=== PATIENT | female | born 1950 | race Caucasian/White ===

== ENCOUNTER → 2016-10-06 | Outpatient (CLI) | payer OTHER ==
[~2016-10-06] MED LIST: CLX/20 PO; GLUCTAB32 PO; HYDR-5688 PO; IBUP-1450 PO; LPT40 PO; OMEG12006 PO; PANT40TA PO; SPIR50TA2 PO; VERA120T15 PO; ZNTT/150 PO; ZOLP5TAB PO
--- NOTE | 2016-10-06 12:36 | MAMMOGRAPHY REPORT ---
UNILATERAL LEFT DIGITAL DIAGNOSTIC MAMMOGRAM TOMOSYNTHESIS WITH CAD: 10/06/2016 CLINICAL HISTORY: 66-year-old woman with biopsy-proven left breast DCIS status post lumpectomy. No radiation therapy. No residual DCIS was identified at lumpectomy, only scattered microcalcification associated with fibrocystic change. TECHNIQUE: Left CC and MLO 2-D digital and tomosynthesis images, spot magnification left CC and ML v iews were obtained. Current study was also evaluated with a Computer Aided Detection (CAD) system. COMPARISON: Comparison is made to exams dated: 04/08/2016 mammogram, 04/08/2016 stereotactic biopsy, 03/25/2016 mammogram, 04/01/2016 mammogram, 02/19/2015 mammogram, and 01/10/2011 mammogram - [facility]. BREAST COMPOSITION: There are scattered areas of fibroglandular density in the left breast. FINDINGS: There is expected architectural distortion, a few oil cysts and surgical clips in the 2:0 0 to 3:00 middle to posterior left breast, at the site of prior lumpectomy. There are loosely group ed and scattered punctate microcalcifications surrounding the surgical site, that have a benign appe arance and most of these calcifications were present prior to the patient's biopsy-proven DCIS. Add itionally, they differ in morphology, as the patient's biopsy proven DCIS was associated with pleomo rphic microcalcifications. No new suspicious mass or architectural distortion is identified in the left breast. A short interval follow-up left mammogram including repeat spot magnification views is recommended to ensure stability in 6 months. IMPRESSION: ACR-BI-RADS CATEGORY 3: PROBABLY BENIGN There are expected post-lumpectomy changes in the left upper outer quadrant. A follow-up left mammo gram including spot magnification views is recommended to ensure stability near the surgical site in the upper outer quadrant of the left breast, including scattered and grouped punctate benign-appear ing microcalcifications. Annual right mammography will also be due at that time. These results and recommendations were discussed with the patient at the time of the exam. Approximately 10% of breast cancers are not detected with mammography. A negative mammographic repor t should not delay biopsy if a clinically suggestive mass is present. Flory Mcmillan M.D. ay/:10/06/2016 09:17:36 Spa Receptionist: Aleksandra ROBERTSON(R)(M), [facility] letter sent: Follow Up Recommended 3 BI-RADS Code: ACR-BI-RADS Category 3: Probably Benign
== END | disposition home or self-care (01) ==
LOC: C.MAMM 08:35
PROVIDERS: ATTEND Obstetrics & Gynecology
DX: R92.0 Mammographic microcalcification found on diagnostic imaging of breast (principal); Z98.890 Other specified postprocedural states

== ENCOUNTER → 2016-10-14 | Outpatient (CLI) | payer OTHER ==
[2016-10-14 12:22] LABS: HEMATOCRIT 37.8 % (37-47); MEAN CELL VOLUME 82.2 fL (80-100); MEAN CORPUSCULAR HEMOGLOBIN 25.7 pg (25-34); MEAN CORPUSCULAR HGB CONC 31.2 g/dl (32-36); MEAN PLATELET VOLUME 10.2 fL (7.4-10.4); PLATELET COUNT 344 K/uL (130-400); WHITE BLOOD COUNT 9.15 K/uL (4.8-10.8)
[2016-10-14 12:26] LABS: ALT/SGPT 25 U/L (12-78); AST/SGOT 12 U/L (15-37); BLOOD UREA NITROGEN 23 mg/dl (7-18); BUN/CREATININE RATIO 20.7 (10-20); CALCIUM 8.7 mg/dl (8.5-10.1); CARBON DIOXIDE 28 mmol/L (21-32); CHLORIDE 105 mmol/L (98-107); GLUCOSE 97 mg/dl (70-99); POTASSIUM 4.3 mmol/L (3.5-5.1); SODIUM 141 mmol/L (136-145)
[2016-10-14 12:38] LABS: ALB/GLOB RATIO 1.1 (0.9-2); ALKALINE PHOSPHATASE 76 U/L (45-117); CHOLESTEROL 167 mg/dl (0-200); CHOLESTEROL/HDL RATIO 2.9; HDL CHOLESTEROL 57 mg/dl; LDL CHOLESTEROL CALCULATED 86 mg/dl; TRIGLYCERIDES 118 mg/dl (0-150); VERY LOW DENSITY LIPOPROT CALC 24 mg/dl
[2016-10-14 12:51] LABS: ESTIMATED AVERAGE GLUCOSE 120 mg/dl; HA1C FLAG Normal (Normal)
== END | disposition home or self-care (01) ==
LOC: C.LABBFT 09:46
PROVIDERS: ATTEND Internal Medicine
DX: E78.00 Pure hypercholesterolemia, unspecified (principal); I10 Essential (primary) hypertension; D64.9 Anemia, unspecified; E88.81 Metabolic syndrome and other insulin resistance

== ENCOUNTER → 2016-10-27 | Outpatient (CLI) | payer OTHER ==
--- NOTE | 2016-10-27 12:18 | DIAGNOSTIC IMAGING REPORT ---
THYROID ULTRASOUND HISTORY: Thyroid nodule NODULE COMPARISON: None. FINDINGS: Right lobe: Maximum dimension 4.4 cm. Several sub-6 mm hypodense nodules. Left lobe: Maximum dimension 4.7 cm. Large nodule measuring inferior aspect left thyroid measuring 4 x 2.5 x 2.0 cm. Fine-needle aspiration is suggested. Several additional subcentimeter nodular densities are also noted. Isthmus: No nodules. IMPRESSION: 1. Baseline multinodular thyroid bilaterally. 2. Dominant mass left mid and lower aspect left thyroid measuring 4.0 x 2.5 cm. Fine-needle aspiration is suggested. Electronically signed by: Chuy Palomo M.D. 10/27/2016 12:17 PM Dictated Date/Time: 10/27/2016 12:14 PM
== END | disposition home or self-care (01) ==
LOC: C.ULTR 11:21
PROVIDERS: ATTEND Surgery
DX: E04.2 Nontoxic multinodular goiter (principal)

== ENCOUNTER → 2016-11-07 | Outpatient (CLI) | payer OTHER ==
--- NOTE | 2016-11-07 11:18 | Discharge Instructions ---
Discharge Instructions Procedure Procedure Date: Nov 07, 2016. Reason for visit: L Thyroid Nodule/Us Was Done 10/27/16. Discharge Discharge Date: Nov 07, 2016. Discharge Diagnosis: s/p left lobe thyroid nodule FNA Instructions Activity Recommendations: No limitations Return to School/Work: no limitations Recommended Home Diet: No Limitations Provider Instructions: ACTIVITY RECOMMENDATIONS: * Rest today. * Resume regular activity in one day. MEDICATIONS: * May take Tylenol or Ibuprofen as needed for pain. DIET: * Resume previous diet. SPECIAL CARE INSTRUCTIONS: Call your doctor if: * Temperature above 101 degrees F. * Pain not relieved by pain medicine ordered. * Increased drainage or redness from incision. * Notify your doctor with any questions or concerns. Call your doctor or go to the nearest Emergency Department if you experience: * Increased chest pain or shortness of breath. FOLLOW UP VISIT: Follow-up with Referring Physician as scheduled. Allergies Coded Allergies: No Known Allergies (Verified , 05/05/16) Dayami Gil Recommendations: Call your doctor if: * Temperature above 101 degrees * Pain not relieved by pain medicine ordered * There is increased drainage or redness from any incision * You have any unanswered questions or concerns. Your Doctors Instructions noted above were prepared by provider Alonso Keenan. Patient Signature Section: Patient Instructions Signature Page Shakila Santoro Patient (or Guardian) Signature/Date: I have read and understand the instructions given to me by my caregivers. Caregiver/RN/Doctor Signature/Date: The above-named patient and/or guardian has received patient instructions on this date. + Original Patient Signature Page (only) stays with chart. Please make copy for patient.
--- NOTE | 2016-11-07 11:39 | DIAGNOSTIC IMAGING REPORT ---
ULTRASOUND GUIDED FINE NEEDLE ASPIRATION OF LEFT LOBE THYROID NODULE CLINICAL HISTORY: Thyroid nodule. COMPARISON STUDY: Thyroid ultrasound October 27, 2016. PROCEDURE: The procedure, risks and benefits were discussed the patient and informed written consent was obtained. The procedure was performed by Dr. Keenan following a timeout. Skin of the left neck was prepped and draped in sterile fashion and local anesthesia was achieved with 1% lidocaine. Under direct ultrasound guidance, 4 25-gauge fine needle aspirations of the 4 cm peripherally calcified left lobe thyroid nodule were performed. The samples were deemed preliminarily adequate by pathology. The patient tolerated the procedure well and no immediate complications were evident. IMPRESSION: Ultrasound guided fine aspiration of 4 cm dominant left lobe thyroid nodule. Electronically signed by: Alonso Keenan M.D. 11/07/2016 11:38 AM Dictated Date/Time: 11/07/2016 11:34 AM
== END | disposition home or self-care (01) ==
LOC: C.ULTR 10:18
PROVIDERS: ATTEND Surgery
DX: E04.1 Nontoxic single thyroid nodule (principal)

== ENCOUNTER → 2017-02-02 | Outpatient (CLI) | payer OTHER ==
[~2017-02-02] MED LIST changes: +ASPI81TA28 PO; +CLOP1TAB15 PO; +CLR10 PO; +MISC1CAP PO; +OMEG10007 PO; +VERA120T2 PO
--- NOTE | 2017-02-02 10:45 | DIAGNOSTIC IMAGING REPORT ---
Ultrasound-guided thyroid biopsy GUIDANCE NEEDLE PLACEMENT CLINICAL HISTORY: LEFT THYROID NODULE thyroid nodule follow-up TECHNIQUE: Ultrasound guided thyroid aspiration COMPARISON STUDY: 11/07/2016 FINDINGS: There was an initial description of the procedure and informed consent, 2 passes with a 25-gauge needle were made to the dominant nodule left thyroid. Thyroid cells were confirmed . There were no complications IMPRESSION: Follow-up thyroid biopsy . No complications. Electronically signed by: Chuy Palomo M.D. 02/02/2017 10:43 AM Dictated Date/Time: 02/02/2017 10:40 AM
== END | disposition home or self-care (01) ==
LOC: C.ULTR 09:36
PROVIDERS: ATTEND Surgery
DX: E04.1 Nontoxic single thyroid nodule (principal)

== ENCOUNTER → 2017-03-30 | Outpatient (CLI) | payer OTHER ==
[~2017-03-30] MED LIST changes: -ASPI81TA28 PO; -CLOP1TAB15 PO; -CLR10 PO; -MISC1CAP PO; -OMEG10007 PO; -VERA120T2 PO
[2017-03-30 12:26] LABS: BASO % 1.1 %; BASO ABS # 0.07 K/uL (0-0.2); COMPLETE YES; EOS % 5.1 %; HEMATOCRIT 39.8 % (37-47); IG% 0.2 %; LYMPH % 34.8 %; MEAN CELL VOLUME 85.4 fL (80-100); MEAN CORPUSCULAR HEMOGLOBIN 26.6 pg (25-34); MEAN CORPUSCULAR HGB CONC 31.2 g/dl (32-36); MEAN PLATELET VOLUME 10.1 fL (7.4-10.4); MONO % 10.3 %; NEUT % 48.5 %; PLATELET COUNT 363 K/uL (130-400); RED BLOOD COUNT 4.66 M/uL (4.2-5.4); WHITE BLOOD COUNT 6.33 K/uL (4.8-10.8)
[2017-03-30 12:45] LABS: ALT/SGPT 23 U/L (12-78); AST/SGOT 14 U/L (15-37); BLOOD UREA NITROGEN 18 mg/dl (7-18); BUN/CREATININE RATIO 16.8 (10-20); CARBON DIOXIDE 28 mmol/L (21-32); CHLORIDE 105 mmol/L (98-107); CHOLESTEROL 168 mg/dl (0-200); GLUCOSE 94 mg/dl (70-99); POTASSIUM 4.3 mmol/L (3.5-5.1); SODIUM 139 mmol/L (136-145)
[2017-03-30 12:47] LABS: ALKALINE PHOSPHATASE 83 U/L (45-117); CHOLESTEROL/HDL RATIO 3.2; HDL CHOLESTEROL 53 mg/dl; LDL CHOLESTEROL CALCULATED 81 mg/dl; TRIGLYCERIDES 169 mg/dl (0-150); VERY LOW DENSITY LIPOPROT CALC 34 mg/dl
[2017-03-30 12:50] LABS: ESTIMATED AVERAGE GLUCOSE 123 mg/dl; HA1C FLAG Normal (Normal)
== END | disposition home or self-care (01) ==
LOC: C.LABBFT 08:50
PROVIDERS: ATTEND Internal Medicine
DX: Z11.59 Encounter for screening for other viral diseases (principal); E88.81 Metabolic syndrome and other insulin resistance; D64.9 Anemia, unspecified

== ENCOUNTER → 2017-04-06 | Outpatient (CLI) | payer OTHER ==
--- NOTE | 2017-04-06 15:12 | MAMMOGRAPHY REPORT ---
BILATERAL DIGITAL DIAGNOSTIC MAMMOGRAM TOMOSYNTHESIS WITH CAD AND TARGETED RIGHT ULTRASOUND: 7 CLINICAL HISTORY: Close follow-up after breast conservation treatment for left breast DCIS. Also nahum e of annual bilateral screening exam. TECHNIQUE: Bilateral CC and MLO 2-D digital and tomosynthesis images were obtained. Spot magnificati on left CC and ML views were also obtained. Current study was also evaluated with a Computer Aided D etection (CAD) system. COMPARISON: Comparison is made to exams dated: 10/06/2016 mammogram, 04/23/2016 stereotactic biopsy, 04/23/2016 mammogram, 04/08/2016 mammogram, 04/08/2016 stereotactic biopsy, and 04/01/2016 mammogram - [facility]. BREAST COMPOSITION: There are scattered areas of fibroglandular density in both breasts. FINDINGS: The parenchymal pattern is similar to prior exams. There is stable nodularity in the later al left breast. Expected architectural distortion in the 2:00 to 3:00 posterior left breast, at the site of prior lumpectomy. Surgical clips are in place. On the spot magnification views, there are a few scattered and loose groupings containing approximately 2 microcalcifications lateral to the surg ical site that are most likely benign. The calcifications appear less prominent compared to the 09/21 spot magnification views. However, another six-month follow-up diagnostic mammogram including spot magnification views is recommended to ensure stability after treatment for left breast DCIS and recheck these scattered and loosely grouped calcifications. No new suspicious mass, unexpected area of architectural distortion or other microcalcifications are seen in the left breast. There are stable post biopsy changes in the 9:00 anterior right breast, with metallic biopsy marker i n place. There is increasingly prominent nodularity in the lateral right breast, including an oval c ircumscribed 12 x 6 mm mass in the upper outer middle one third of the breast, and a lobulated circum scribed 4 x 7 mm mass in the upper outer anterior right breast. Further evaluation with ultrasound w as performed. No suspicious spiculated or irregular mass, focal area of architectural distortion or suspicious calcifications are seen in the right breast. Targeted ultrasound was performed in the lateral right breast. In the 9:00 periareolar axis, there i s an anechoic benign simple cyst measuring 4.5 x 4.2 x 6.6 mm. This correlates well with the circums cribed mass in the anterior aspect of the breast. Another oval parallel anechoic cyst is identified in the 9:00 right breast, 6 cm from the nipple, which may correlate with the second circumscribed ova l mass seen mammographically. These findings most likely represent benign fibrocystic changes. Cole yu, a short interval follow-up diagnostic right mammogram including tomosynthesis images and possibl e repeat ultrasound is recommended to ensure stability of the nodularity in 6 months. IMPRESSION: ACR-BI-RADS CATEGORY 3: PROBABLY BENIGN, TARGETED ULTRASOUND ACR-BI-RADS CATEGORY 3: PRO BABLY BENIGN 1. Expected post treatment changes in the left breast with a few scattered and loosely grouped benig n-appearing microcalcifications at the surgical site. Another six-month follow-up diagnostic left ma mmogram including spot magnification views is recommended to ensure longer stability after treatment. 2. Increasing nodularity in the lateral right breast thought to correlate with scattered cysts and f ibrocystic changes on ultrasound. However, a short interval follow-up diagnostic right mammogram inc luding tomosynthesis images and possible repeat ultrasound is recommended to ensure stability in 6 mo nths. These results and recommendations were discussed with the patient at the time of the exam. Approximately 10% of breast cancers are not detected with mammography. A negative mammographic report should not delay biopsy if a clinically suggestive mass is present. Flory Mcmillan M.D. ay/:04/06/2017 11:29:57 Senior Partner: Claudia Borges, [facility] letter sent: Follow Up Recommended 3 BI-RADS Code: ACR-BI-RADS Category 3: Probably Benign Ultrasound BI-RADS: ACR-BI-RADS Category 3: Pr obably Benign
== END | disposition home or self-care (01) ==
LOC: C.MAMM 09:09
PROVIDERS: ATTEND Surgery
DX: C50.912 Malignant neoplasm of unspecified site of left female breast (principal); R92.0 Mammographic microcalcification found on diagnostic imaging of breast

== ENCOUNTER → 2017-04-27 | Outpatient (CLI) | payer OTHER ==
--- NOTE | 2017-04-27 10:52 | DIAGNOSTIC IMAGING REPORT ---
ULTRASOUND-GUIDED FINE-NEEDLE ASPIRATION BIOPSY OF A LEFT LOBE THYROID NODULE CLINICAL HISTORY: LEFT THYROID NODULE COMPARISON STUDY: 02/02/2017 FINDINGS: The risks of the procedure were explained the patient and informed consent was obtained. Patient was prepped and draped in sterile fashion. The skin was anesthetized 1% lidocaine. Under ultrasound guidance, 2 passes with 25-gauge needle were performed into the dominant left lobe thyroid nodule. Initial pathologic review indicates satisfactory material for diagnosis. IMPRESSION: Successful ultrasound-guided fine-needle aspiration biopsy of a lower pole left lobe thyroid nodule. Electronically signed by: Kenneth Tomlinson M.D. 04/27/2017 10:51 AM Dictated Date/Time: 04/27/2017 10:49 AM
== END | disposition home or self-care (01) ==
LOC: C.ULTR 09:38
PROVIDERS: ATTEND Surgery
DX: E04.1 Nontoxic single thyroid nodule (principal); R89.6 Abnormal cytological findings in specimens from other organs, systems and tissues

== ENCOUNTER 2017-09-02 05:21 | Inpatient (IN) | payer OTHER ==
[2017-08-03 11:08] VITALS: BMI 38.0
--- NOTE | 2017-08-03 11:46 | PAT Medication Instructions ---
Service Date Aug 03, 2017. Current Home Medication List Aspirin (Aspirin Ec), 81 MG PO QAM Atorvastatin (Atorvastatin Calcium), 40 MG PO HS Citalopram (Citalopram Hydrobromide), 20 MG PO QAM Clopidogrel (Plavix), 75 MG PO QAM Fish Oil (Marion-3), 1 CAP PO QAM Gweocqgsorl-Qmhymycoaae-Ab Cho (Glucosamine Chondroitin &), 1 TAB PO QAM Loratadine (Claritin), 10 MG PO QAM Misc Natural Products ([employer]), 1 TAB PO QPM Pantoprazole (Protonix), 40 MG PO QAM Ranitidine (Zantac), 1 TAB PO BID Spironolactone (Aldactone), 50 MG PO QAM Verapamil Sust Rel (Calan Sr Ext Rel), 120 MG PO BID Zolpidem Tartrate (Ambien), 1 TAB PO HS Medication Instructions For Your Scheduled Surgery - Check with surgeon/prescribing physician for instructions: Aspirin (Aspirin Ec), 81 MG PO QAM Clopidogrel (Plavix), 75 MG PO QAM - Hold the following medications 2 weeks prior to surgery: Misc Natural Products ([employer]), 1 TAB PO QPM Fish Oil (Marion-3), 1 CAP PO QAM Tgrzoktrbfz-Owndwgfbprb-Qv Cho (Glucosamine Chondroitin &), 1 TAB PO QAM - Hold the following medications the morning of surgery: Spironolactone (Aldactone), 50 MG PO QAM Loratadine (Claritin), 10 MG PO QAM - Take the following medications the morning of surgery with a sip of water: Ranitidine (Zantac), 1 TAB PO BID Pantoprazole (Protonix), 40 MG PO QAM Citalopram (Citalopram Hydrobromide), 20 MG PO QAM Verapamil Sust Rel (Calan Sr Ext Rel), 120 MG PO BID - Take the following medications as scheduled the night before surgery: Zolpidem Tartrate (Ambien), 1 TAB PO HS Ranitidine (Zantac), 1 TAB PO BID Atorvastatin (Atorvastatin Calcium), 40 MG PO HS Verapamil Sust Rel (Calan Sr Ext Rel), 120 MG PO BID If you have any questions please call us at [phone] or [phone] or [phone]
[2017-08-03 12:30] LABS: BASO % 0.7 %; BASO ABS # 0.05 K/uL (0-0.2); COMPLETE YES; HEMATOCRIT 39.6 % (37-47); IG% 0.1 %; LYMPH % 26.7 %; MEAN CELL VOLUME 86.5 fL (80-100); MEAN CORPUSCULAR HEMOGLOBIN 28.2 pg (25-34); MEAN CORPUSCULAR HGB CONC 32.6 g/dl (32-36); MEAN PLATELET VOLUME 10.2 fL (7.4-10.4); MONO % 8.8 %; NEUT % 59.7 %; PLATELET COUNT 331 K/uL (130-400); RED BLOOD COUNT 4.58 M/uL (4.2-5.4); WHITE BLOOD COUNT 6.74 K/uL (4.8-10.8)
[2017-08-03 13:07] LABS: BUN/CREATININE RATIO 13.8 (10-20); CALCIUM 9.1 mg/dl (8.5-10.1); CREATININE 1.06 mg/dl (0.60-1.20); POTASSIUM 4.5 mmol/L (3.5-5.1)
[2017-09-02] VITALS (10 sets, daily range): BP systolic 103–138; BP diastolic 66–85; PULSE 65–82; TEMP 36.5–36.9; O2SAT 92–95; Ht 162.6 cm; Wt 101.3 kg
[~2017-09-02] VITALS: Ht 162.6 cm; Wt 101.3 kg
[~2017-09-02 05:21] MED LIST changes: +ASPI81TA28 PO; +CLOP1TAB15 PO; +CLR10 PO; -HYDR-5688 PO; -IBUP-1450 PO; +MISC1CAP PO; +OMEG10007 PO; -OMEG12006 PO; -VERA120T15 PO; +VERA120T2 PO
[2017-09-02] MEDS ORDERED: AMOX500T PO (05:44)
[2017-09-02] MEDS ORDERED: CEFAZOLIN 2000MG IV PUSH 10 ML IV SCH (06:00)
[2017-09-02] MEDS ORDERED: LACTATED RINGER'S 1000ML 1,000 ML IV SCH ×3 (06:00→12:45)
--- NOTE | 2017-09-02 06:34 | History and Physical ---
History & Physical Date Sep 02, 2017. Chief Complaint LEFT THYROID NODULE History of Present Illness The patient is a 67 year old female with complaints of 4X2.5CM L THYROID NODULE WITH FNA SHOWING FOLLICULAR NEOPLASM. PT REQUESTS TOTAL THYROIDECTOMY. Past Medical/Surgical History Medical Problems: (1) Hypercholesteremia (2) TIA (transient ischemic attack) BREAST DCIS, ANXIETY, GERD, DYSLIPIDEMIA, HTN, OBESITY, PVD Surgical Problems: (1) H/O lumpectomy S/P SAURAV/BSO Allergies Coded Allergies: No Known Allergies (Verified , 09/02/17) Home Medications Scheduled Amoxicillin & Pot Clavulanate (Augmentin 500MG), 1 TAB PO BID Aspirin (Aspirin Ec), 81 MG PO QAM Atorvastatin (Atorvastatin Calcium), 40 MG PO HS Citalopram (Citalopram Hydrobromide), 20 MG PO QAM Clopidogrel (Plavix), 75 MG PO QAM Fish Oil ([place]-3), 1 CAP PO QAM Jyuoerlnvdk-Fbxmmiggibq-Nv Cho (Glucosamine Chondroitin &), 1 TAB PO QAM Loratadine (Claritin), 10 MG PO QAM Misc Natural Products ([employer]), 1 TAB PO QPM Pantoprazole (Protonix), 40 MG PO QAM Ranitidine (Zantac), 1 TAB PO BID Spironolactone (Aldactone), 50 MG PO QAM Verapamil Sust Rel (Calan Sr Ext Rel), 120 MG PO BID Zolpidem Tartrate (Ambien), 1 TAB PO HS Physical Examination Skin: warm/dry, no rash Eyes: normal inspection, EOMI, sclerae normal ENT: + pertinent finding (4CM SOFT L THYROID NODULE) Head: normocephalic, atraumatic Neck: supple, no adenopathy, trachea midline Respiratory/Chest: lungs clear, normal breath sounds, no respiratory distress Cardiovascular: regular rate, rhythm, no edema, no murmur Neurologic/Psych: no motor/sensory deficits, alert, normal reflexes, oriented x 3 Diagnosis LEFT THYROID NODULE Plan of Treatment TOTAL THYROIDECTOMY
[2017-09-02] MEDS ORDERED: FENTANYL CITRATE INJ 50 MCG/1 ML 2 ML VIAL IV PRN (06:45)
[2017-09-02] MEDS ORDERED: HYDROmorphone INJ 1 MG/ML SYR IV PRN (06:45)
[2017-09-02] MEDS ORDERED: ATROPINE SULFATE 0.1 MG/ML 5ML SYR IV PRN (06:45)
[2017-09-02] MEDS ORDERED: PROMETHAZINE HCL INJ 12.5 MG in SODIUM CHLORIDE 0.9% 50ML 50 ML IV PRN (06:45)
[2017-09-02] MEDS ORDERED: ONDANSETRON INJ 2 MG/ML 2 ML VIAL IV PRN ×2 (06:45→09:45)
[2017-09-02] MEDS ORDERED: EpHEDrine SULFATE INJ 50 MG/ML AMP IV PRN (06:45)
[2017-09-02] MEDS ORDERED: ONDANSETRON INJ 2 MG/ML 2 ML VIAL ONE ×2 (07:02→08:13)
[2017-09-02] MEDS ORDERED: NEOSTIGMINE METHYLSULFATE 5 MG/5 ML SYR ONE (07:02)
[2017-09-02] MEDS ORDERED: DEXAMETHASONE SOD INJ 4 MG/ML VIAL ONE (07:02)
[2017-09-02] MEDS ORDERED: GLYCOPYRROLATE INJ 0.2 MG/ML VIAL ONE (07:02)
[2017-09-02] MEDS ORDERED: FENTANYL CITRATE INJ 50 MCG/1 ML 2 ML VIAL ONE (07:02)
[2017-09-02] MEDS ORDERED: MIDAZOLAM HCL 1 MG/ML 2ML VIAL ONE (07:02)
[2017-09-02] MEDS ORDERED: PROPOFOL IV EMULSION 10 MG/ML 20 ML VIAL IV ONE (07:02)
[2017-09-02] MEDS ORDERED: LIDOCAINE HCL 2% 2 ML VIAL (20MG/ML) ONE (07:02)
[2017-09-02] MEDS ORDERED: ACETAMINOPHEN 1000 MG/100 ML IV IV ONE (07:07)
[2017-09-02] MEDS ORDERED: REMIFENTANIL 1 MG VIAL ONE (07:07)
[2017-09-02] MEDS ORDERED: THROMBIN 5000 UNITS KIT ONE (07:08)
[2017-09-02] MEDS ORDERED: BACITRACIN OINT 15 GM TUBE ONE (07:08)
[2017-09-02] MEDS ORDERED: LIDOCAINE/EPINEPHRINE 1% 20 ML VIAL ONE (07:08)
[2017-09-02] MEDS ORDERED: SODIUM CHLORIDE 0.9% INJ 10 ML VIAL ONE (08:14)
[2017-09-02] MEDS ORDERED: PHENYLEPHRINE HCL INJ 10 MG/ML VIAL ONE (08:14)
[2017-09-02] MEDS ORDERED: EpHEDrine SULFATE 50MG/5ML SYR ONE (08:14)
[2017-09-02] MEDS ORDERED: SURGICEL ABSORB HEMOSTAT 2IN X 14IN TOP ONE (09:31)
--- NOTE | 2017-09-02 09:34 | [facility] Operative Report ---
Operative Report Operative Date Sep 02, 2017. Pre-Operative Diagnosis Left Thyroid Nodule Post-Operative Diagnosis Left Thyroid Nodule Procedure(s) Performed Total Thyroidectomy Surgeon Dr. Meir Dejesus Industrial Conveyor Belt Repairer Surgeon(s) Sindy Dudley PA-C Estimated Blood Loss 25ml Findings 1. LARGE ~4CM LEFT THYROID NODULE Specimens A. Right Thyroid Lobe-Single stitch araya Isthmus and Double stitch araya Superior Pole B. Left Thyroid Lobe-Single stitch araya Isthmus and Double stitch araya Superior Pole I attest to the content of the Intraoperative Record and any orders documented therein. Any exceptions are noted below.
--- NOTE | 2017-09-02 09:41 | Discharge Instructions ---
Discharge Instructions Date of Service Sep 02, 2017. Admission Reason for Admission: Multinodular Goiter Discharge Discharge Diagnosis / Problem: SAME Discharge Goals Goal(s): Therapeutic intervention Activity Recommendations Activity Limitations: as noted below 1. LIGHT ACTIVITY FOR 2 WEEKS 2. NO DRIVING WHILE ON NORCO 3. KEEP ICE ON INCISION MUCH POSSIBLE FOR 1 WEEK 4. KEEP INCISION DRY FOR 1 WEEK . Current Hospital Diet Patient's current hospital diet: Discharge Diet Recommended Diet: Regular Diet Procedures Procedures Performed: Total Thyroidectomy Pending Studies Studies pending at discharge: no Medical Emergencies . Who to Call and When: Medical Emergencies: If at any time you feel your situation is an emergency, please call 911 immediately. . Non-Emergent Contact Non-Emergency issues call your: Surgeon . . "Provider Documentation" section prepared by Meir Dejesus. . VTE Core Measure Inpt VTE Proph given/why not?: SCD's
[2017-09-02] MEDS ORDERED: HYDROCODONE/ACETAMOPHEN 5/325MG TAB PO PRN (09:45)
--- NOTE | 2017-09-02 10:42 | OPERATIVE REPORT ---
DATE OF OPERATION: 09/02/2017 PREOPERATIVE DIAGNOSIS: Large left thyroid nodule with fine needle aspiration biopsy, showing follicular neoplasm. POSTOPERATIVE DIAGNOSIS: Same. PROCEDURE: Total thyroidectomy. SURGEON: Dr. Meir Dejesus. COMPUTER SYSTEMS SUPPORT SPECIALIST: Sindy Dudley PA-C ESTIMATED BLOOD LOSS: 25 mL. FINDINGS: Large left thyroid nodule, measuring approximately 4 cm in greatest dimension. SPECIMENS: Right and left thyroid lobe sent separately for permanent pathological specimen. COMPLICATIONS: None. DRAINS: None. INDICATIONS FOR THE PROCEDURE: The patient is a pleasant 67-year-old female with a history of a 4-cm left thyroid nodule, for which she underwent ultrasound guided fine needle aspiration biopsy, which showed findings suspicious of follicular neoplasm. It was discussed with her that this may represent a benign follicular adenoma, but follicular carcinoma cannot be ruled out on fine needle aspiration biopsy. She has a history of breast cancer and also a strong family history of malignancy and she desires total thyroidectomy for diagnostic and therapeutic purposes. She presents for the above-mentioned procedure on an inpatient elective basis. DESCRIPTION OF PROCEDURE: After informed consent had been obtained from the patient, the patient was wheeled to the operating room and placed on the operating table in the supine position. Monitors were placed. After induction of general endotracheal anesthesia with a size 7 nerve integrity monitor endotracheal tube, the patient's head and neck were gently extended and a marking pen was used to outline the planned 6-cm incision in a natural skin crease 2 fingerbreadths above the level of clavicles. 3 mL of 1% lidocaine with 1:100,000 epinephrine was used to inject the skin and subcutaneous tissues overlying the planned incision site. The skin in the neck and chest were then prepped and draped in the usual sterile fashion. A #15 scalpel was then used to make the incision through the skin, subcutaneous tissue, and platysma. Subplatysmal flaps were raised superiorly to the level of the thyroid notch and inferiorly to the level of clavicles. The median raphe of the strap muscle was divided using Bovie electrocautery. The strap muscles were retracted laterally and the right thyroid lobe was first addressed. The middle thyroid vein was divided adjacent to the thyroid capsule using a Harmonic scalpel. Likewise, the superior and inferior thyroid vascular pedicles were divided adjacent to the thyroid capsule using a Harmonic scalpel. Dissection was carried lateral to medial with care to identify and preserve the right recurrent laryngeal nerve as well as superior and inferior parathyroid candidates. It was difficult to identify the parathyroid glands due to the patient's surrounding adipose tissue, but 2 candidates were found. The thyroid gland was at the isthmus using a Harmonic scalpel. Orienting sutures were placed in the right thyroid lobectomy specimen, which was sent off for permanent pathologic assessment. The right thyroid lobe appeared normal in size and there were no gross nodules seen. The left side was then addressed in a similar fashion with intraoperative findings of a large 4-cm semi-firm nodule involving the majority of the left thyroid lobe. Orienting sutures were placed on the left thyroid lobectomy specimen, which was sent off for permanent pathological assessment. The wound was then copiously irrigated and suctioned. Bipolar cautery was used to achieve adequate hemostasis. Hemostasis was confirmed with a Valsalva maneuver. Small pieces of Surgicel followed by topical spray thrombin were then placed into the bilateral tracheoesophageal grooves for added hemostatic effect. The strap muscles were then reapproximated in the midline using a simple running interlocked 3-0 Vicryl suture. The platysma was then closed with several deep 4-0 Monocryl sutures. The skin was then closed with a simple running subcuticular 5-0 Monocryl suture. The incision was cleansed and dried. Dermabond was applied to the incision. This marked the end of the case. The patient tolerated the procedure well. There were no apparent complications. The patient was extubated and transferred to recovery room in stable condition. Of note, Sindy Dudley assisted with the entire case and performed the skin closure involving a 4-0 Monocryl and 5-0 Monocryl sutures. I attest to the content of the Intraoperative Record and any orders documented therein. Any exception s are noted below.
--- NOTE | 2017-09-02 12:53 | Anesthesiology Progress Note ---
Anesthesia Post Op Note Date & Time Sep 02, 2017 at 12:53 Vital Signs Pain Intensity: 0.0 Vital Signs Past 12 Hours Date Time Temp Pulse Resp B/P (MAP) Pulse Ox O2 Delivery O2 Flow Rate FiO2 09/02/17 12:43 78 16 134/85 (101) 95 Room Air 09/02/17 11:50 36.5 80 18 133/82 09/02/17 11:20 94 Nasal Cannula 2.0 09/02/17 11:20 36.5 81 16 135/80 09/02/17 11:20 94 Room Air 2.0 09/02/17 11:05 81 15 147/75 94 Nasal Cannula 2 09/02/17 10:50 36.3 83 14 157/81 94 Nasal Cannula 2 09/02/17 10:40 85 15 149/90 97 Oxymask 10 09/02/17 10:30 84 15 149/82 99 Oxymask 10 09/02/17 10:20 36.2 88 15 152/77 98 Oxymask 10 09/02/17 05:47 36.9 65 18 132/67 (88) 95 Room Air Notes Mental Status: alert / awake / arousable, participated in evaluation Pt Amnestic to Procedure: Yes Nausea / Vomiting: adequately controlled Pain: adequately controlled Airway Patency, RR, SpO2: stable & adequate BP & HR: stable & adequate Hydration State: stable & adequate Anesthetic Complications: no major complications apparent
[2017-09-02] MEDS ORDERED: INFLUENZA VIRUS QUAD VACCINE 0.5 ML SYR IM. ONE (13:30)
[2017-09-02] MEDS ORDERED: INFLUENZA ADMINISTRATION CHARGE ONE (13:30)
[2017-09-02] MEDS: ACETAMINOPHEN 325 MG TAB PO PRN ×2 (15:28→22:24)
[2017-09-02 15:36] LABS: CALCIUM 8.6 mg/dl (8.5-10.1); MAGNESIUM 2.1 mg/dl (1.8-2.4); PHOSPHORUS 2.7 mg/dl (2.5-4.9)
[2017-09-02] MEDS ORDERED: NURSING VERBAL MED ORDER ONE (19:30)
[2017-09-02] MEDS: RANITIDINE HCL 150 MG TAB PO SCH (20:48)
[2017-09-02] MEDS: VERAPAMIL HCL 120 MG TABCR PO SCH (20:48)
[2017-09-02] MEDS ORDERED: ZOLPIDEM TARTRATE 5 MG TAB PO SCH (21:00)
[2017-09-02] MEDS ORDERED: ATORVASTATIN 40 MG TAB PO SCH (21:00)
[2017-09-02 21:39] LABS: CALCIUM 8.8 mg/dl (8.5-10.1); MAGNESIUM 2.2 mg/dl (1.8-2.4); PHOSPHORUS 1.8 mg/dl (2.5-4.9)
[2017-09-03 02:20] VITALS: BP 113/72; PULSE 71; TEMP 36.6; O2SAT 93
[2017-09-03] MEDS: ACETAMINOPHEN 325 MG TAB PO PRN ×2 (04:01→08:37)
[2017-09-03 04:12] LABS: MAGNESIUM 2.1 mg/dl (1.8-2.4)
[2017-09-03 04:14] LABS: PHOSPHORUS 3.2 mg/dl (2.5-4.9)
[2017-09-03 04:15] LABS: CALCIUM 8.7 mg/dl (8.5-10.1)
[2017-09-03] MEDS ORDERED: LEVOTHYROXINE 150 MCG TAB PO SCH (06:00)
--- NOTE | 2017-09-03 06:47 | ENT PROGRESS NOTE ---
DATE: 09/03/2017 The patient is postoperative day #1 status post total thyroidectomy for a large left thyroid nodule with a fine-needle aspiration biopsy that was suspicious for follicular neoplasm. She has done well postoperatively with no complaints. She denies any numbness or tingling around the lips, fingers or toes. She denies any involuntary muscle spasms or cramps. She is afebrile and her vital signs are stable. She has a normal voice. Her incision is clean, dry and intact with mild ecchymosis, but no hematoma or fluid collection. Laboratory examination reveals normal calcium 3 times every 6 hours since 3:00 p.m. yesterday. ASSESSMENT AND PLAN: A 67-year-old female postoperative day #1 status post total thyroidectomy. She is doing very well. She will be discharged to home this morning.
--- NOTE | 2017-09-03 06:52 | DISCHARGE SUMMARY ---
DATE OF DISCHARGE: 09/03/2017 ADMISSION AND DISCHARGE DIAGNOSIS: Large left thyroid nodule. HOSPITAL COURSE: The patient is a pleasant 67-year-old female who underwent total thyroidectomy for a 4 cm left thyroid nodule for which a fine-needle aspiration biopsy was suspicious for a follicular neoplasm. Intraoperatively, the patient had a large 4 cm left thyroid nodule and overall an enlarged left thyroid lobe with a normal right thyroid lobe. Postoperatively, she did well with no complications. Her calciums were normal during her hospitalization. She is discharged home on postoperative day #1 with new medications of Synthroid 150 mcg daily and Victoria 5 mg/325 mg 1-2 tablets p.o. q. 4 hours p.r.n. with 40 tablets given. She is to follow up in my office on postoperative day #6. She is to call if she develops any numbness or tingling around the lips, fingers or toes and/or any involuntary muscle spasms or cramps. She should keep ice on her incision as much as possible over the next week and keep her incision dry over the next week as well.
[2017-09-03 07:18] VITALS: BP 110/71; PULSE 72; TEMP 36.6; O2SAT 96
[2017-09-03] MEDS: VERAPAMIL HCL 120 MG TABCR PO SCH (07:28)
[2017-09-03] MEDS: RANITIDINE HCL 150 MG TAB PO SCH (07:28)
[2017-09-03] MEDS ORDERED: CITALOPRAM 20 MG TAB PO SCH (09:00)
[2017-09-03] MEDS ORDERED: LORATADINE 10 MG TAB PO SCH (09:00)
[2017-09-03] MEDS ORDERED: PANTOprazole SOD 40 MG TAB PO SCH (09:00)
[2017-09-03] MEDS ORDERED: SPIRONOLACTONE 25 MG TAB PO SCH (09:00)
[2017-09-03 09:19] VITALS: BP 110/71; PULSE 72; TEMP 36.6; O2SAT 96
[2017-09-03 09:26] LABS: CALCIUM 8.8 mg/dl (8.5-10.1); PHOSPHORUS 3.3 mg/dl (2.5-4.9)
== END 2017-09-03 10:02 | disposition home or self-care (01) | DRG 627 ==
LOC: C.ACU 05:21 → C.MSN 09:39 → ENRESERV 10:50
PROC: 0GTG4ZZ Resection of Left Thyroid Gland Lobe, Percutaneous Endoscopic Approach (ICD-10-PCS; principal; 2017-09-02 07:15)
DX: E04.1 Nontoxic single thyroid nodule (principal); E78.00 Pure hypercholesterolemia, unspecified; Z86.73 Personal history of transient ischemic attack (TIA), and cerebral infarction without residual deficits

== ENCOUNTER → 2017-09-18 | Outpatient (CLI) | payer OTHER ==
[~2017-09-18] MED LIST changes: +AMOX500T PO; -CLOP1TAB15 PO; +LEVO150T PO; +PLAVIX PO; +PLV75 PO; +RANI150T85 PO; -ZNTT/150 PO
[2017-09-18 10:48] LABS: HEMATOCRIT 39.8 % (37-47); HEMOGLOBIN 12.9 g/dL (12.0-16.0); MEAN CELL VOLUME 86.1 fL (80-100); MEAN CORPUSCULAR HEMOGLOBIN 27.9 pg (25-34); MEAN CORPUSCULAR HGB CONC 32.4 g/dl (32-36); MEAN PLATELET VOLUME 10.6 fL (7.4-10.4); PLATELET COUNT 349 K/uL (130-400); RED CELL DISTRIBUTION WIDTH CV 15.4 % (11.5-14.5); RED CELL DISTRIBUTION WIDTH SD 48.6 fL (36.4-46.3); WHITE BLOOD COUNT 7.22 K/uL (4.8-10.8)
[2017-09-18 11:15] LABS: HEMOGLOBIN A1C 5.9 % (4.5-5.6)
[2017-09-18 11:18] LABS: ALBUMIN 3.8 gm/dl (3.4-5.0); ALT/SGPT 21 U/L (12-78); BLOOD UREA NITROGEN 21 mg/dl (7-18); CALCIUM 8.7 mg/dl (8.5-10.1); CARBON DIOXIDE 28 mmol/L (21-32); CHOLESTEROL 173 mg/dl (0-200); CREATININE 1.03 mg/dl (0.60-1.20); GLUCOSE 91 mg/dl (70-99); POTASSIUM 4.1 mmol/L (3.5-5.1); SODIUM 138 mmol/L (136-145)
[2017-09-18 11:27] LABS: ALKALINE PHOSPHATASE 69 U/L (45-117); AST/SGOT 12 U/L (15-37); LDL CHOLESTEROL CALCULATED 102 mg/dl; TOTAL PROTEIN 7.1 gm/dl (6.4-8.2)
--- NOTE | 2017-09-28 07:19 | CODING QUERY MEDICAL NECESSITY ---
SUPPORTING DIAGNOSIS NEEDED A supporting diagnosis is required for the test/procedure performed on this patient in order for us to be reimbursed by the patient's insurance. Please provide a supporting diagnosis for the following test/procedure listed below next to the test name along with your signature. *If there is no additional diagnosis for this patient that would support the following test/procedure please document that below next to the test/procedure. Test(s)/Procedure(s) that require a supporting diagnosis: * HEMOGLOBIN A1C DIAGNOSIS: Provider Signature: Date: Thank you Sindy Pineda [employer] Information Management Once completed, please kindly fax back to [phone] For questions please call [phone]
== END | disposition home or self-care (01) ==
LOC: C.LAB1850 09:58
PROVIDERS: ATTEND Internal Medicine Endocrinology, Diabetes & Metabolism
DX: E78.00 Pure hypercholesterolemia, unspecified (principal); E88.81 Metabolic syndrome and other insulin resistance; E89.0 Postprocedural hypothyroidism

== ENCOUNTER → 2017-10-02 | Outpatient (CLI) | payer OTHER ==
[~2017-10-02] MED LIST changes: -ASPI81TA28 PO; -LEVO150T PO; -OMEG10007 PO; -PLAVIX PO; -PLV75 PO; -RANI150T85 PO; +ZNTT/150 PO
== END | disposition home or self-care (01) ==
LOC: C.LABBFT 08:17
PROVIDERS: ATTEND Internal Medicine Endocrinology, Diabetes & Metabolism
DX: E04.1 Nontoxic single thyroid nodule (principal); E88.81 Metabolic syndrome and other insulin resistance

== ENCOUNTER → 2017-10-12 | Outpatient (CLI) | payer OTHER ==
--- NOTE | 2017-10-12 14:42 | MAMMOGRAPHY REPORT ---
BILATERAL DIGITAL DIAGNOSTIC MAMMOGRAM TOMOSYNTHESIS WITH CAD AND TARGETED RIGHT ULTRASOUND: 8 CLINICAL HISTORY: 67-year-old woman with a personal history of left breast cancer status post breast conservation treatment presents for a close follow-up in the left breast after treatment and also fol low-up of nodularity of the right breast that was thought to represent fibrocystic change. TECHNIQUE: Bilateral breast tomosynthesis in addition to standard 2D mammography was performed. Spot magnification left CC and ML views were also obtained. Current study was also evaluated with a Comp uter Aided Detection (CAD) system. COMPARISON: Comparison is made to exams dated: 04/06/2017 mammogram, 04/01/2016 mammogram, 03/25/2016 ma mmogram, 02/19/2015 mammogram, 01/31/2014 mammogram, and 01/24/2013 mammogram - [facility]. BREAST COMPOSITION: There are scattered areas of fibroglandular density in both breasts. FINDINGS: There is expected architectural distortion and surgical clips in the 3:00 middle to medical practice manager ior left breast, at the site of prior lumpectomy. There are scattered stable punctate microcalcifica tions in the left breast near the surgical site, that are stable on the spot magnification views comp aring back to prior spot magnification views dated 10/06/2016, therefore likely benign. There is sta ble nodularity in the 6:00 and upper outer middle and anterior left breast. No new suspicious mass, architectural distortion or cluster of suspicious microcalcifications is seen in the left breast. There is stable nodularity in the lateral right breast, and a stable metallic biopsy marker in the 9: 00 anterior right breast. Nodularity in the anterior 12:00 right breast is slightly more prominent c omparing to the prior mammogram and further evaluation with ultrasound was performed. No other new s uspicious masses, calcifications, areas of architectural distortion or asymmetries are seen in the ri ght breast. Targeted ultrasound was performed in the 12:00 through 6:00 axes of the right breast. In the 12:00 a xis, 1 cm from the nipple, there are 2 adjacent oval parallel circumscribed nearly anechoic benign cy sts measuring 4.8 and 3.4 mm. No suspicious solid mass identified. IMPRESSION: ACR-BI-RADS CATEGORY 3: PROBABLY BENIGN, TARGETED ULTRASOUND ACR-BI-RADS CATEGORY 3: PRO BABLY BENIGN Slight increased prominence of nodularity in the 12:00 anterior right breast thought to correlate wit h 2 adjacent anechoic benign cysts on ultrasound. Stable posttreatment changes in the left breast. No definite mammographic evidence of malignancy bilaterally. Recommend bilateral diagnostic tomosynt hesis mammograms including left breast spot magnification views in 6 months to ensure 2 years of stab ility after treatment. These results and recommendations were discussed with the patient at the time of the exam. Approximately 10% of breast cancers are not detected with mammography. A negative mammographic report should not delay biopsy if a clinically suggestive mass is present. Flory Mcmillan M.D. ay/:10/12/2017 08:57:05 Informatics Nurse Specialist: Isi MACKAY)(M), [facility] letter sent: Follow Up Recommended 3 BI-RADS Code: ACR-BI-RADS Category 3: Probably Benign Ultrasound BI-RADS: ACR-BI-RADS Category 3: Pr obably Benign
== END | disposition home or self-care (01) ==
LOC: C.MAMM 08:10
PROVIDERS: ATTEND Internal Medicine
DX: Z08 Encounter for follow-up examination after completed treatment for malignant neoplasm (principal); N63.12 Unspecified lump in the right breast, upper inner quadrant; N60.11 Diffuse cystic mastopathy of right breast; Z85.3 Personal history of malignant neoplasm of breast

== ENCOUNTER → 2017-10-12 | Outpatient (CLI) | payer OTHER ==
--- NOTE | 2017-10-12 10:19 | DIAGNOSTIC IMAGING REPORT ---
CHEST 2 VIEWS ROUTINE CLINICAL HISTORY: Cough. COMPARISON STUDY: Chest radiograph May 05, 2016. FINDINGS: Lung volumes are normal. No pneumothorax or pleural effusion is present. Cardiac size is normal. Mediastinal contours are normal. Apparent right infrahilar opacity is likely due to epicardial fat pad and pulmonary vessels. IMPRESSION: Apparent mild right infrahilar opacity. This is likely due to normal vessels or atelectasis. A small area of pneumonia could appear similar although is considered less likely. Electronically signed by: Alonso Keenan M.D. 10/12/2017 10:17 AM Dictated Date/Time: 10/12/2017 10:13 AM
== END | disposition home or self-care (01) ==
LOC: C.RAD 09:23
PROVIDERS: ATTEND Internal Medicine
DX: R91.8 Other nonspecific abnormal finding of lung field (principal); R05 Cough

== ENCOUNTER → 2017-10-26 | Outpatient (CLI) | payer OTHER ==
[~2017-10-26] MED LIST changes: +OPTIRAY 320 IV PRN
--- NOTE | 2017-10-26 08:13 | DIAGNOSTIC IMAGING REPORT ---
CHEST CT WITH CONTRAST CT DOSE: 517.81 mGycm HISTORY: Follow-up study to assess a right infrahilar opacity seen on comparison chest radiographs 10/12/2017 R93.8 Abnormal chest [id number] TECHNIQUE: Multiaxial CT images of the chest were performed following the intravenous administration of 120 mL Optiray 320 IV contrast. A dose lowering technique was utilized adhering to the principles of ALARA. COMPARISON: Chest radiograph 6 10/10/2017. FINDINGS: No dominant thyroid nodule identified. No pathologically enlarged lymph nodes about the chest. Heart is normal in size without pericardial effusion. Calcifications of the mitral annulus are noted. The left vertebral artery emanates strictly from the aortic arch. The imaged great vessels appear patent. No thoracic aortic aneurysm or dissection. The opacified pulmonary arterial tree is unremarkable. There is no pneumothorax, pleural effusion, focal airspace consolidation or pulmonary edema. There is resolution of the previously noted right infrahilar opacity. 3 mm solid noncalcified pulmonary nodule is seen within the lingula, image 114 series 4. 4 mm perifissural lymph node is seen on the left image 130 series 4. No suspicious pulmonary nodules or pulmonary masses identified. Central airways are patent. No acute abnormality of the imaged upper abdomen. Surgical clips are seen within the bilateral breasts. Soft tissues are unremarkable. Bones appear intact. Multilevel endplate spurring and facet arthrosis of the spine. IMPRESSION: 1. No acute intrathoracic abnormality identified. 2. There is resolution of the previously noted right infrahilar opacity suggesting resolved pneumonia or atelectasis. 3. 3 mm solid nodule of the lingula is likely benign. 4. No pathologic adenopathy. Please refer to below summary of Fleischner criteria recommendations for follow-up of incidental CT nodules (Cortney Molina, Guidelines for management of small pulmonary nodules detected on CT scans: A statement from the Fleischner Society, Radiology 237: [phone].) SOLID NODULES Solitary nodule size: <6 mm * Low risk patients: no follow-up needed * high risk patients: optional CT at 12 months Note: newly detected indeterminate nodule in persons 35 years of age or older. * Low risk patients: minimal or absent history of smoking and/or other known risk factors * high risk patients: history of smoking or of other known risk factors (e.g. first degree relative with lung cancer, or exposure to asbestos, radon, uranium) * if a nodule up to 8 mm is partly solid or is ground glass further follow-up is required after 24 months to exclude possible slow growing adenocarcinoma (RIVERA) The above report was generated using voice recognition software. It may contain grammatical, syntax or spelling errors. Electronically signed by: Toby Ballard M.D. 10/26/2017 8:12 AM Dictated Date/Time: 10/26/2017 8:05 AM
== END | disposition home or self-care (01) ==
LOC: C.CTS 07:36
PROVIDERS: ATTEND Internal Medicine
DX: R93.8 Abnormal findings on diagnostic imaging of other specified body structures (principal)

== ENCOUNTER → 2018-04-21 | Outpatient (CLI) | payer OTHER ==
[~2018-04-21] MED LIST changes: +ASPI81TA28 PO; +LEVO150T PO; +OMEG10007 PO; -OPTIRAY 320 IV PRN; +PLAVIX PO; +RANI150T85 PO; -ZNTT/150 PO
--- NOTE | 2018-04-21 14:56 | MAMMOGRAPHY REPORT ---
BILATERAL DIGITAL DIAGNOSTIC MAMMOGRAM TOMOSYNTHESIS WITH CAD: 04/21/2018 CLINICAL HISTORY: 67-year-old woman with a personal history of left breast cancer status post breast conservation treatment, with lumpectomy performed May 02, 2016. Patient presents at time of annual bilateral examination and also continued close follow-up in the left breast after treatment. TECHNIQUE: Bilateral CC and MLO 2D and tomosynthesis images, spot magnification left CC and ML views were performed over the surgical site in the left breast. Current study was also evaluated with a [employer] Aided Detection (CAD) system. COMPARISON: Comparison is made to exams dated: 10/12/2017 mammogram, 04/06/2017 mammogram, 10/06/2016 m ammogram, 04/23/2016 mammogram, 04/08/2016 mammogram, and 04/01/2016 mammogram - [facility] nt. BREAST COMPOSITION: There are scattered areas of fibroglandular density in both breasts. FINDINGS: There is expected architectural distortion and surgical clips in the 3:00 middle through po sterior left breast, at the site of prior lumpectomy. A linear scar marker overlies the lateral left breast. There is stable nodularity throughout the middle and anterior aspect of each breast, includ ing a stable oval circumscribed subcentimeter mass in the 12:00 right breast, thought to correspond w ith a cyst on ultrasound. There is a stable dumbbell-shaped biopsy marker clip in the lateral right breast. 2 stable benign-appearing punctate calcifications in the lateral anterior left breast, that appears similar dating back to at least 2012. No new suspicious masses, calcifications, areas of arc hitectural distortion or asymmetries are seen bilaterally. Recommend bilateral mammography in 12 mon ths, and would also recommend remaining a diagnostic patient in case any additional mammographic view s and/or ultrasound may be needed, given the personal history of left breast cancer. IMPRESSION: ACR BI-RADS CATEGORY 2: BENIGN 1. Stable posttreatment changes in the left breast, and stable postbiopsy changes in the right breas t, without mammographic evidence of malignancy bilaterally. 2. Recommend bilateral mammography in 1 year, and would also recommend remaining a diagnostic patien t, given the personal history of left breast cancer and nodular breast parenchyma, in case any additi onal mammographic views and/or ultrasound may be needed. These results and recommendations were discussed with the patient at the time of the exam. Some breast cancers are not detected with mammography. A negative mammographic report should not bunny y biopsy if a clinically suggestive mass is present. Flory Mcmillan M.D. ay/:04/21/2018 09:07:19 Horticultural Specialty Grower Field: RT Wilma(Torsten)(M), [facility] letter sent: Normal 1/2 BI-RADS Code: ACR BI-RADS Category 2: Benign
--- NOTE | 2018-04-27 11:21 | HISTORY & PHYSICAL EXAMINATION ---
DATE OF ADMISSION: 04/27/2018 CHIEF COMPLAINT: Mass protruding from the vagina on coughing or sneezing, some loss of urine on coughing or sneezing. HISTORY OF PRESENT ILLNESS: Patient is a 67-year-old 3, para 2, had 1 spontaneous Ab. In 1998, she had SAURAV-BSO for pelvic pain and bleeding. She has been on medications for high blood pressure and hypothyroidism. She describes 2 main symptoms; basically when she coughs, sneezes, or strains, she has a mass protruding from the vaginal opening, and she has to wear a pad for some loss of urine on coughing or sneezing. Mass has been protruding on coughing or sneezing for over 6 months, getting progressively worse, urinary symptoms also over 6 months. PAST MEDICAL HISTORY: Two children in good health. ALLERGIES: No known drug allergies. PAST SURGICAL HISTORY: SAURAV-BSO, tonsillectomy and adenoidectomy, carpal tunnel, malocclusion surgery, and breast cancer of the left breast. PAST MEDICAL HISTORY: On medications for high blood pressure and hypothyroidism. SOCIAL HISTORY: No smoking. No excessive alcohol intake. Retired. FAMILY HISTORY: Mom at age 74, fallopian tube cancer. Father at age 75, heart attack, he was a smoker. 1 brother and 3 sisters in good health. REVIEW OF SYSTEMS: HEAD: No symptoms of frequent or severe headaches. EYES: No symptoms of blurred vision or double vision. EARS: No symptoms of frequent ear infections or difficulty hearing. NOSE: No symptoms of frequent nosebleeds or difficulty breathing through her nose. THROAT: No symptoms of frequent or severe sore throat or difficulty swallowing. RESPIRATORY SYSTEM: No history of asthma, chest pain, shortness of breath. PHYSICAL EXAMINATION: GENERAL: Well-developed and well-nourished 67-year-old white female, alert, oriented x3, cooperative, in no acute distress, appears her stated age. HEENT: Head is normocephalic. Normal distribution of hair. Eyes: Conjunctivae are pink. Sclerae are white. No evidence of jaundice. Ears had normal light reflex bilaterally. Nose had normal mucosa. Septum is midline. There were no polyps. Throat had no erythema or evidence of infection. Teeth are in good state of repair. NECK: Supple. Trachea midline. Thyroid is not enlarged. There is no adenopathy appreciated. Both carotids are of good intensity. RESPIRATORY: Chest is clear to auscultation and percussion. No wheezes, rales, or rhonchi appreciated. CARDIOVASCULAR: Heart had a regular rhythm. S1 and S2 are normal. BREASTS: Normal. GASTROINTESTINAL: Abdomen is soft and nontender. There is a well-healed Pfannenstiel scar. PELVIC: Exam reveals good support of the vaginal cuff, second to third degree rectocele, and first to second degree cystocele. IMPRESSION: Symptomatic rectocele, symptomatic cystocele, status post total abdominal hysterectomy and bilateral salpingo-oophorectomy, status post tonsillectomy and adenoidectomy, status post malocclusion surgery, status post carpal tunnel surgery, status post lumpectomy for breast cancer.
== END | disposition home or self-care (01) ==
LOC: C.MAMM 08:03
PROVIDERS: ATTEND Obstetrics & Gynecology
DX: Z08 Encounter for follow-up examination after completed treatment for malignant neoplasm (principal); Z85.3 Personal history of malignant neoplasm of breast

== ENCOUNTER 2025-05-29 06:58 | Observation (INO) ==
--- NOTE | 2025-05-03 09:25 | PAT Medication Instructions ---
Medication Instructions Date of Service May 03, 2025 Home Medications Medication Instructions Recorded insulin syringe-needle U-100 1 mL #4 ea 10/20/23 25 gauge x 5/8" atorvastatin 40 mg tablet 40 mg PO PM #90 tabs 06/03/24 verapamil 120 mg tablet,extended 120 mg PO BID #180 tabs 06/03/24 release spironolactone 50 mg tablet 50 mg PO QAM #90 tabs 06/06/24 citalopram 20 mg tablet (Celexa) 20 mg PO QAM #90 tabs 07/21/24 levothyroxine 137 mcg tablet 137 mcg PO DAILY #90 tabs 09/08/24 cyanocobalamin (vitamin B-12) 1,000 mcg IM MONTHLY 90 days #3 mL 11/15/24 1,000 mcg/mL injection solution famotidine 40 mg tablet 40 mg PO DAILY #90 tabs 12/23/24 rotigotine 8 mg/24 hour 8 mg transdermal DAILY 90 days #90 01/09/25 transdermal 24 hour patch ea celecoxib 100 mg capsule (Celebrex) 100 mg PO BID #60 caps 03/06/25 zolpidem 10 mg tablet 10 mg PO HS #90 tabs 03/08/25 pantoprazole 40 mg tablet,delayed 40 mg PO QAM #90 tabs 03/31/25 release carbidopa 25 mg-levodopa 100 mg See Rx Instructions .Route 04/25/25 tablet .COMPLEX #240 tabs ondansetron HCl 4 mg tablet 4 mg PO TID PRN nausea #90 tabs 04/25/25 omega-3 fatty acids 1,000 mg capsule (Fish Oil Concentrate) 1,000 mg PO QAM aspirin 81 mg tablet 81 mg PO PM loratadine 10 mg tablet 10 mg PO QAM sennosides 8.6 mg tablet (Senna Laxative) 17.2 mg PO QAM atorvastatin 40 mg tablet 40 mg PO PM verapamil 120 mg tablet,extended release 120 mg PO BID spironolactone 50 mg tablet 50 mg PO QAM citalopram 20 mg tablet (Celexa) 20 mg PO QAM levothyroxine 137 mcg tablet 137 mcg PO DAILY cyanocobalamin (vitamin B-12) 1,000 mcg/mL injection solution 1,000 mcg IM MONTHLY famotidine 40 mg tablet 40 mg PO DAILY rotigotine 8 mg/24 hour transdermal 24 hour patch 8 mg transdermal DAILY celecoxib 100 mg capsule (Celebrex) 100 mg PO BID zolpidem 10 mg tablet 10 mg PO HS pantoprazole 40 mg tablet,delayed release 40 mg PO QAM carbidopa 25 mg-levodopa 100 mg tablet See Rx Instructions .Route .COMPLEX ondansetron HCl 4 mg tablet 4 mg PO TID PRN Continue as directed levothyroxine 137 mcg tablet 137 mcg PO DAILY famotidine 40 mg tablet 40 mg PO DAILY rotigotine 8 mg/24 hour transdermal 24 hour patch 8 mg transdermal DAILY carbidopa 25 mg-levodopa 100 mg tablet See Rx Instructions .Route .COMPLE ASK your surgeon for instructions celecoxib 100 mg capsule (Celebrex) 100 mg PO BID ASK your prescriber and surgeon aspirin 81 mg tablet 81 mg PO PM STOP taking 2 weeks before surgery (or as soon as possible if surgery is within 2 weeks) omega-3 fatty acids 1,000 mg capsule (Fish Oil Concentrate) 1,000 mg PO QAM DO NOT take the morning of surgery loratadine 10 mg tablet 10 mg PO QAM sennosides 8.6 mg tablet (Senna Laxative) 17.2 mg PO QAM spironolactone 50 mg tablet 50 mg PO QAM cyanocobalamin (vitamin B-12) 1,000 mcg/mL injection solution 1,000 mcg IM MONTHLY Take morning of surgery With a small sip of water, OTHERWISE NOTHING TO EAT OR DRINK AFTER MIDNIGHT: verapamil 120 mg tablet,extended release 120 mg PO BID citalopram 20 mg tablet (Celexa) 20 mg PO QAM pantoprazole 40 mg tablet,delayed release 40 mg PO QAM ondansetron HCl 4 mg tablet 4 mg PO TID PRN(if needed) Take evening before surgery atorvastatin 40 mg tablet 40 mg PO PM verapamil 120 mg tablet,extended release 120 mg PO BID zolpidem 10 mg tablet 10 mg PO HS ondansetron HCl 4 mg tablet 4 mg PO TID PRN(if needed) Other Notes If you have any questions please call us at [phone] or [phone] or [phone] or [phone]
--- NOTE | 2025-05-03 11:44 | Anesthesiology Consultation ---
Date of Service May 03, 2025 Assessment & Plan (1) Encounter for pre-operative examination: Plan - isolated elevated PTT at 38. Case discussed in detail with Dr. Roberts who advised PTT be repeated DOS. - [place] PCP advised stress echo 08/2024-not yet completed to chart review. Patient made aware at PAT visit will need PCP clearance prior to surgery. Chart Review Chart Review: Pending: Refer to Additional Notes / Consult section and Patient seen in Pre Admission Testing Teaching & Discussion Pre-Anesthesia Teaching/Discussion Notes: Instructed NPO after midnight before surgery, except medications with 15 cc of water. Medication instructions provided according to the [facility] guidelines. History Surgery Operation Date: 05/29/25 08:00 Proposed Procedures p Robotic Assisted Left Total Knee Arthroplasty - Luis Fuller, Height/Weight Height: 5 ft 2 in Weight: 76.2 kg Allergies Allergy/AdvReac Type Severity Reaction Status Date / Time ropinirole AdvReac Mild Shakiness Verified 05/03/25 08:35 Medications Home Medications Medication Instructions Recorded Confirmed Last Taken omega-3 fatty acids 1,000 mg 1,000 mg PO QAM 12/15/19 05/03/25 11/10/23 capsule (Fish Oil Concentrate) aspirin 81 mg tablet 81 mg PO PM 08/12/21 05/03/25 11/10/23 loratadine 10 mg tablet 10 mg PO QAM 01/14/22 05/03/25 11/10/23 sennosides 8.6 mg tablet (Senna 17.2 mg PO QAM 01/14/22 05/03/25 11/10/23 Laxative) insulin syringe-needle U-100 1 mL #4 ea 10/20/23 01/16/25 Unknown 25 gauge x 5/8" atorvastatin 40 mg tablet 40 mg PO PM #90 tabs 06/03/24 05/03/25 Unknown verapamil 120 mg tablet,extended 120 mg PO BID #180 tabs 06/03/24 05/03/25 Unknown release spironolactone 50 mg tablet 50 mg PO QAM #90 tabs 06/06/24 05/03/25 Unknown citalopram 20 mg tablet (Celexa) 20 mg PO QAM #90 tabs 07/21/24 05/03/25 Unknown levothyroxine 137 mcg tablet 137 mcg PO DAILY #90 tabs 09/08/24 05/03/25 Unknown cyanocobalamin (vitamin B-12) 1,000 mcg IM MONTHLY 90 days #3 mL 11/15/24 05/03/25 Unknown 1,000 mcg/mL injection solution famotidine 40 mg tablet 40 mg PO DAILY #90 tabs 12/23/24 05/03/25 Unknown rotigotine 8 mg/24 hour 8 mg transdermal DAILY 90 days #90 01/09/25 05/03/25 Unknown transdermal 24 hour patch ea celecoxib 100 mg capsule (Celebrex) 100 mg PO BID #60 caps 03/06/25 05/03/25 Unknown zolpidem 10 mg tablet 10 mg PO HS #90 tabs 03/08/25 05/03/25 Unknown pantoprazole 40 mg tablet,delayed 40 mg PO QAM #90 tabs 03/31/25 05/03/25 Unknown release carbidopa 25 mg-levodopa 100 mg See Rx Instructions .Route 04/25/25 05/03/25 Unknown tablet .COMPLEX #240 tabs ondansetron HCl 4 mg tablet 4 mg PO TID PRN nausea #90 tabs 04/25/25 05/03/25 Unknown Past Medical History Medical History (Updated 05/03/25 @ 12:17 by Beatriz Pang PA-C) Acid reflux controlled, stable per pt Anxiety Ductal carcinoma in situ (DCIS) of left breast ~2014- no chemo or radiation-denies limb restriction High cholesterol History of anesthesia reaction difficulty waking History of TIA (transient ischemic attack) (~2004) over 20 yrs ago>started on aspirin/plavix for this--no deficits, follows with [facility] HTN (hypertension) controlled, stable per pt Hx of chest pain intermittent, relieved w/ antacids, and improved since starting famotidine- has not done stress echo advised by [facility] PCP 08/2024 Hypothyroidism Joint pain, knee Leg length discrepancy On anticoagulant therapy plavix daily> STOPPED PLAVIX ~01/2025 Osteoarthritis Parkinsons disease tremor rt arm, follows with [facility] Neuro Right rotator cuff tendonitis hx Venous insufficiency Patient denies h/o seizures, heart attack, heart failure, DM, blood clots/DVTs or blood transfusions. Exercise / Class Metabolic Activity III < 4 Walking/Shop/Light housework (denies chest discomfort or shortness of breath with usual activities) Past Family History Family History Father Alcoholism Myocardial infarction Mother Cancer of fallopian tube Tremor Cancer Other No family history of adverse response to anesthesia Denies family history of Ovarian cancer Prostate cancer Breast cancer Colorectal cancer Past Surgical History Surgical History Breast hematoma with removal Ganglion cyst of wrist removed from left wrist H/O lumpectomy left > no chemo History of carpal tunnel release left History of cystocele repair History of dilatation and curettage History of esophagogastroduodenoscopy (EGD) History of mandibular surgery TMJ surgery--no issues History of repair of rectocele History of tonsillectomy Hx of bladder repair surgery S/P colonoscopy last 10/14/21 @ [facility] S/P hysterectomy S/P total thyroidectomy Past Anesthesia History No Family Hx of Anesthesia Complications and Other (slowness to wake) History of PONV No Hx of PONV and No Hx of Motion Sickness Social History Smoking Status: Never smoker Do You Dip or Chew Tobacco: No Hx Alcohol Use: Yes Alcohol type: beer alcohol intake frequency: holidays/special occasions only Hx Substance Use: No substance use type: does not use Review of Systems Snoring, denies witnessed apneas. Patient denies shortness of breath, dyspnea on exertion, fever, chills, cough, wheezing, or palpitations. Physical Exam Vital Signs Vitals BP 102/63 P 63 TEMP 97.8 SP02 97% on RA RESP 17 Physical Patient resting comfortably in chair in no acute distress, alert and oriented, responding appropriately throughout visit Full cervical extension range of motion without pain TMD 3.5 finger breadths Mallampati Score 2 Dentition: several crowns; denies chipped or loose teeth, caps, implants or bridges Lungs: normal respiratory effort. Good air movement, clear throughout to auscultation, no adventitious breath sounds Cardiac: regular rate and rhythm, no murmurs noted Carotid arteries: negative bruit bilat Lab Results Anesthesia Preop Results Results Anesthesia Widget: WBC 8.56 K/ul (4.8-10.8) 05/03/25 Hgb 13.1 g/dl (12.0-16.0) 05/03/25 Hct 40.9 % (37.0-47.0) 05/03/25 Plt 316 K/uL (130-400) 05/03/25 Na 139 mmol/L (136-145) 05/03/25 K 4.3 mmol/L (3.5-5.1) 05/03/25 Cl 103 mmol/L (98-107) 05/03/25 CO2 31 mmol/L (21-32) 05/03/25 BUN 22 mg/dl (6-23) 05/03/25 Creat 0.99 mg/dl (0.6-1.2) 05/03/25 Glucose Level 96 mg/dl (70-99(Fasting)) 05/03/25 PT 10.5 Seconds (9.0-12.0) 05/03/25 PTT 38 Seconds (21-31) H 05/03/25 INR 1.0 (0.9-1.1) 05/03/25 HA1c 5.6 % (4.5-5.6) 05/03/25 Blood Type A Positive 05/03/25 Antibody Screen NEGATIVE 05/03/25 Testing Electrocardiogram Date: 09/07/24 Sinus bradycardia, rate 59 bpm Chest X-Ray Date: 01/03/25 No pneumonia seen.
[~2025-05-29 06:58] MED LIST changes: -AMOX500T PO; -ASPI81TA28 PO; -CLR10 PO; -CLX/20 PO; -GLUCTAB32 PO; -LEVO150T PO; -LPT40 PO; -MISC1CAP PO; -OMEG10007 PO; -PANT40TA PO; -PLAVIX PO; -RANI150T85 PO; +ROPIVACAINE 0.5% 5 MG/ML 30 ML VIAL ONE; -SPIR50TA2 PO; -VERA120T2 PO; -ZOLP5TAB PO
[2025-05-29 07:57] LABS: INR 1.0 (0.9-1.1); Partial Thromboplastin Time 39 Seconds (21-31); Prothrombin Time 10.6 Seconds (9.0-12.0)
[2025-05-29] MEDS: ACETAMINOPHEN 500 MG TAB PO SCH ×2 (08:00→15:11)
[2025-05-29] MEDS: dexAMETHasone**PF** 10 MG/ML VIAL IV SCH (08:01)
[2025-05-29] MEDS: LR 60ML/HR IV SCH (08:01)
[2025-05-29] MEDS ORDERED: ONDANSETRON INJ 2 MG/ML 2 ML VIAL ONE (08:01)
[2025-05-29] MEDS ORDERED: MIDAZOLAM HCL 1 MG/ML 2ML VIAL ONE (08:01)
[2025-05-29] MEDS: LR 15ML/HR IV SCH (08:01)
[2025-05-29] MEDS ORDERED: LIDOCAINE 2% 2 ML VIAL/AMP(20MG/ML) INFIL ONE (08:01)
[2025-05-29] MEDS ORDERED: PROPOFOL IV EMULSION 10 MG/ML 20 ML VIAL IV ONE (08:01)
[2025-05-29] MEDS ORDERED: DEXAMETHASONE SOD INJ 4 MG/ML VIAL ONE (08:01)
[2025-05-29] MEDS: GABAPENTIN 300 MG CAP PO SCH (08:01)
[2025-05-29] MEDS: FAMOTIDINE 20 MG TAB PO SCH (08:01)
--- NOTE | 2025-05-29 08:14 | History & Physical Bridge Note ---
Date of Service May 29, 2025 History & Physical Bridge Note I have examined the patient, reviewed the History & Physical and in the interval since the performance of the History & Physical I have noted the following changes of clinical significance: no changes noted
[2025-05-29] MEDS ORDERED: HYDROmorphone INJ 1 MG/ML SYRINGE IV PRN (08:38)
[2025-05-29] MEDS ORDERED: ONDANSETRON INJ 2 MG/ML 2 ML VIAL IV PRN ×2 (08:38→14:45)
[2025-05-29] MEDS ORDERED: ATROPINE SULFATE 0.1 MG/ML 10ML SYR IV PRN (08:38)
[2025-05-29] MEDS: TRANEXAMIC ACID 1,000 MG **IV Pre-op IV SCH (08:47)
[2025-05-29] MEDS ORDERED: PROPOFOL IV EMULSION 10 MG/ML 100 ML VIAL IV ONE (09:33)
[2025-05-29] MEDS: ORTHO JOINT ANESTHETIC ONE (09:59)
--- NOTE | 2025-05-29 10:39 | Operative Report ---
PG Post Operative Report Pre & Post Diagnosis Operation Date: 05/29/25 09:00 Pre-Op Diagnosis: Osteoarthritis of Left Knee Post-Op Diagnosis: Osteoarthritis of Left Knee I identified the patient and participated in the time-out.: Yes Procedure Operation Date: 05/29/25 09:00 Actual Procedures p Robotic Assisted Left Total Knee Arthroplasty(Left) - Luis Fuller DO Surgeon Luis Fuller DO Rn Lpn Lvn Toby Casey PA-C Estimated Blood Loss 30 Findings Consistent with Post-Op Diagnosis Specimens Left femoral and tibial bone Description of Procedure Implants used: I used a Isabel Person[employer] total knee arthroplasty system with a size 6 standard PS femur, D tibia, 28 oval patella, and a size 14 CPS polyethylene bearing. All components were cemented in place with Biomet cement. Shakila arrived [facility] for the above procedure. She was seen in the preoperative holding area and the operative extremity was identified and signed. She was given a preoperative antibiotic, TXA, a spinal anesthetic and an adductor nerve block. She was taken back to the operating room and laid on the table in supine position. She was given basic sedation. The operative knee was then prepped and draped in sterile fashion. A timeout was done, and the patient and the operative extremity was properly identified. A midline incision was made directly over the patella. Dissection was taken down to the extensor mechanism. A medial parapatellar arthrotomy was used. The medial retinaculum was released and the fat pad was mostly excised. The knee was flexed and the ACL, PCL, and meniscus were removed. The alignment of the knee replacement was assisted with a [employer] robotic knee. The femoral array was pinned in the distal femur and the tibial array was pinned using a percutaneous technique in the upper shaft of the tibia. The robot was appropriately calibrated and the structure of the knee was mapped out. The components were then manipulated on the screen to account for any malalignment and to assist in gap balancing. Once I was happy with the placement of the components on the screen, a distal femoral cutting guide was brought in place. The distal femur was then resected. The femur measured to be a size 6. A 4-in-1 cutting block was then put into place by the robot and 2 peg holes were drilled. The 4-in-1 cutting block was then impacted into place and anterior, posterior, and chamfer cuts were made. The cutting block was then brought down to the tibia and pinned into place. The proximal tibia was then resected. The posterior aspect of the knee was then opened up and any additional meniscus fragments and osteophytes were removed. The tibia measured to be a size D. The tibial plate was then placed in the appropriate rotation and the tibia was drilled and punched. Trial components were then placed. The patella was then everted and 9 mm was resected off the posterior aspect of the patella. The patella measured to be a size 28 oval. 3 peg holes were then drilled. A trial patella was placed. A size 14 CPS polyethylene insert was then trialed. The knee was brought through a full range of motion and felt to be stable. Trial components were then removed. The surrounding soft tissues were injected with 100 cc of an orthopedic pain control cocktail. All components were then cemented into place with Biomet cement. The final polyethylene insert was then snapped into place. Once cement was dry the tourniquet was deflated. Hemostasis was obtained. A dilute betadyne lavage was then done for 3 minutes. The joint was then irrigated with normal saline solution. The medial parapatellar arthrotomy was then closed with #1 Vicryl suture. The skin was closed with 2-0 Vicryl, 3-0V lock suture, and Siva zip line. A soft compressive dressing was placed. She was then transferred to a hospital bed and taken to the postanesthesia care unit in stable condition. She tolerated the procedure well. Toby Casey PA-C, was present for the entire procedure. He was critical for patient positioning, prepping, draping, retraction exposure, wound closure and application of sterile dressing. I attest to the content of the Intraoperative Record and any orders documented therein. Any exceptions are noted below.
[2025-05-29] MEDS: ROPIV 0.5% 246mg, Ketorolac 30mg, EPINEPHrine 0.5mg in NSS INFIL SCH (10:50)
--- NOTE | 2025-05-29 11:34 | XRay Report ---
XR knee LT 1 or 2V routine CLINICAL HISTORY: Surgical Post Op COMPARISON: None FINDINGS: Left knee prosthesis shows no hardware complication. There is expected soft tissue gas. IMPRESSION: Unremarkable postoperative exam. ACT 112: Negative or not required by law. Electronically signed by: Jovi Wells M.D. 05/29/2025 11:32 AM
[2025-05-29] MEDS: CARBIDOPA/LEVODOPA 25/100MG TAB PO ONE (11:40)
--- NOTE | 2025-05-29 11:56 | Anesthesiology Progress Note ---
Date of Service May 29, 2025 Anesthesia Post Procedure Vital Signs Vital Signs: Temp Pulse Pulse Resp BP Pulse Ox O2 Del Method 05/29/25 11:40 64 12 133/72 100 Room Air 05/29/25 11:30 63 13 121/67 100 Oxymask 05/29/25 11:20 64 13 127/67 100 Oxymask 05/29/25 11:10 66 13 127/68 100 Oxymask 05/29/25 11:03 36.2 C L 67 15 144/78 H 98 Oxymask 05/29/25 07:33 36.7 C 61 20 124/68 97 Room Air O2 Flow Rate 05/29/25 11:40 0 05/29/25 11:30 4 05/29/25 11:20 4 05/29/25 11:10 6 05/29/25 11:03 6 05/29/25 07:33 Transfer of Care Handoff Completed per policy Notes Mental Status: alert / awake / arousable and participated in evaluation Patient Amnestic to Procedure: Yes Nausea / Vomiting: adequately controlled Pain: adequately controlled Airway Patency, RR, SpO2: stable & adequate BP & HR: stable & adequate Hydration State: stable & adequate Anesthetic Complications: no major complications apparent and Pt Satisfied with anesthetic care
[2025-05-29] MEDS ORDERED: HYDROmorphone INJ 0.5 MG/0.5 ML SYR IV PRN (14:45)
[2025-05-29] MEDS ORDERED: NALOXONE HCL 0.4 MG/1 ML VIAL/CARP IV PRN (14:45)
[2025-05-29] MEDS ORDERED: MAGNESIUM HYDROXIDE SUSP 30 ML UDC PO PRN (14:45)
[2025-05-29] MEDS ORDERED: METOCLOPRAMIDE HCL INJ 5 MG/ML 2 ML VIAL IV PRN (14:45)
[2025-05-29] MEDS: KETOROLAC TROMETHAMINE 15 MG/ML VIAL IV SCH (15:11)
[2025-05-29] MEDS: SODIUM CHLORIDE 0.9% 1,000 ML IV SCH (15:11)
[2025-05-29] MEDS: CARBIDOPA/LEVODOPA 25/100MG TAB PO SCH (17:02)
[2025-05-29] MEDS: SENNA 8.6 MG TAB PO SCH (21:23)
[2025-05-29] MEDS: ZOLPIDEM TARTRATE 5 MG TAB PO SCH (21:23)
[2025-05-29] MEDS: DOCUSATE SODIUM 100 MG CAP PO SCH (21:24)
[2025-05-29] MEDS: ASPIRIN 81 MG ECTAB PO SCH (21:25)
[2025-05-29] MEDS: ATORVASTATIN 40 MG TAB PO SCH (21:25)
[2025-05-29] MEDS: VERAPAMIL HCL 120 MG TABCR PO SCH (22:41)
[2025-05-30] MEDS: LEVOTHYROXINE SODIUM 137 MCG TABLET PO SCH (05:35)
[2025-05-30 07:19] VITALS: BP 121/72; PULSE 64; RESP 18; TEMP 97.9; O2SAT 95
[2025-05-30] MEDS: SPIRONOLACTONE 25 MG TAB PO SCH (07:49)
[2025-05-30] MEDS: CITALOPRAM 20 MG TAB PO SCH (07:49)
[2025-05-30] MEDS: FAMOTIDINE 40 MG TABLET PO SCH (07:49)
[2025-05-30] MEDS: MULTIVITAMIN TAB PO SCH (07:49)
--- NOTE | 2025-05-30 09:08 | Orthopedic Progress Note ---
Date of Service May 30, 2025 Assessment & Plan (1) Status post total left knee replacement: * Continue Current Treatment * Disposition: home * Daily treatment: Physical Therapy/ Occupational Therapy per protocol * Weight bearing status: WBAT * Continue to monitor for ABLA * Pain control * DVT prophylaxis, ASA * Office/hospital f/u 2 weeks for progress check and staple/suture removal * Plan for discharge today pending PT/OT clearance Subjective . Active Problems: S/p left TKA POD 1 75 y/o female s/p left TKA. Doing well overall, pain managed and improved function. Denies fever/chills, chest pain/SOB, nausea/vomiting. Otherwise no complaints. Review of Systems All systems reviewed & are unremarkable except as noted in HPI & below. Physical Exam . * General: Alert and oriented, no acute distress * Constitutional: well-developed, well-nourished. * Respiratory: Normal respiratory effort, no distress * Gastrointestinal: No tenderness to palpation, no rigidity or guarding. * Skin: No rash or lesion. * Neurologic: Grossly normal * Musculoskeletal: Left knee surgical dressing CDI, not removed for exam. Otherwise no obvious deformity or overlying skin changes RLE. Diffuse TTP distal thigh and knee region. Otherwise no specific tenderness of proximal thigh, lower leg, foot/ankle. AROM knee flexion 100 degrees. AROM foot/ankle intact. Sensation intact plantar/dorsal foot. Brisk capillary refill. Results & Data Results & Data Laboratory Results . Diagnostic Findings . Knee X-Ray 05/29/25 11:11 XR knee LT 1 or 2V routine CLINICAL HISTORY: Surgical Post Op COMPARISON: None FINDINGS: Left knee prosthesis shows no hardware complication. There is expected soft tissue gas. IMPRESSION: Unremarkable postoperative exam. ACT 112: Negative or not required by law. Electronically signed by: Jovi Wells M.D. 05/29/2025 11:32 AM PG Care Time/CCT Total # of Minutes Spent Total Time Spent with Patient: Total time spent is greater than 50% in coordination of care (as documented) at patient's floor/unit and/or counseling patient: Coding Level of Care Code 45296 Post Operative Follow-Up Diagnoses Status post total left knee replacement Z96.652
== END 2025-05-30 12:30 | disposition home or self-care (01) ==
LOC: 3E 06:58 → ASU 06:58